=== PATIENT | female | born 1985 | race Caucasian/White ===

== ENCOUNTER 2021-01-02 13:01 | Emergency (ER) | payer OTHER ==
[2021-01-02 13:10] VITALS: BP 118/79; PULSE 92; TEMP 97.9; BMI 28.7
[2021-01-02] MEDS ORDERED: ONDANSETRON 4 MG/2 ML VIAL IVPUSH ONE (13:30)
[2021-01-02] MEDS ORDERED: SODIUM CHLORIDE 1,000 ML IV STA ×2 (13:30→15:38)
[2021-01-02] MEDS ORDERED: MAG HYDROX/AL HYDROX/SIMETH 30 ML UNIT-DOSE CUP PO ONE (13:31)
[2021-01-02] MEDS ORDERED: ONDANSETRON 4 MG/2 ML VIAL ONE (13:37)
[2021-01-02] MEDS ORDERED: MAG HYDROX/AL HYDROX/SIMETH 30 ML UNIT-DOSE CUP ONE (13:37)
[2021-01-02 14:18] LABS: BASO % 0.3 % (0-2.0); EOS % 0.2 % (0-4.5); HEMOGLOBIN 14.5 GM/dL (10.7-15.3); LYMPH % 11.6 % (8-40); MCH 30.1 pg (25.7-33.7); MCHC 34.5 g/dl (32.0-36.0); MEAN CELL VOLUME 87.3 fl (80-96); MEAN PLT VOLUME 9.2 fl (7.5-11.1); MONO % 4.6 % (3.8-10.2); NEUT % 83.3 % (42.8-82.8); PLATELET COUNT 308 10^3/uL (134-434); RBC 4.81 M/mm3 (3.60-5.2); RDW 12.6 % (11.6-15.6); WHITE BLOOD COUNT 10.7 K/mm3 (4.0-10.0)
[2021-01-02 14:25] LABS: INR 1.08 (0.83-1.09); PROTHROMBIN TIME (PATIENT) 13.3 SEC (9.7-13.0)
[2021-01-02 14:44] LABS: BLOOD UREA NITROGEN 15.5 mg/dL (7-18); CALCIUM 8.9 mg/dL (8.5-10.1)
[2021-01-02 14:45] LABS: ALBUMIN 4.3 g/dl (3.4-5.0)
[2021-01-02 14:48] LABS: CREATININE 0.9 mg/dL (0.55-1.3)
[2021-01-02 14:49] LABS: BILIRUBIN,TOTAL 0.5 mg/dL (0.2-1); TOT PROT 8.8 g/dl (6.4-8.2)
[2021-01-02 14:53] LABS: URINE APPEARANCE CLOUDY; URINE BILIRUBIN NEGATIVE (NEGATIVE); URINE COLOR YELLOW; URINE GLUCOSE (UA) NEGATIVE (NEGATIVE); URINE KETONE 2+ (NEGATIVE); URINE LEUK ESTERASE NEGATIVE (NEGATIVE); URINE NITRITE NEGATIVE (NEGATIVE); URINE PROTEIN TRACE (NEGATIVE)
[2021-01-02 14:56] LABS: HCG,QUALITATIVE URINE Negative
[2021-01-02] MEDS ORDERED: FAMOTIDINE 20 MG/50 ML IVPB 20 MG/50 ML MG IVPB ONE ×2 (15:37→15:49)
[2021-01-02] MEDS ORDERED: ACETAMINOPHEN 1000 MG/100 ML VIAL (NON FORMULARY) IVPB ONE (15:37)
[2021-01-02] MEDS ORDERED: ACETAMINOPHEN INJECTION 100 ML IVPB ONE (15:48)
== END 2021-01-02 18:28 | disposition home or self-care (01) ==
LOC: JER 13:01
PROC: 3E033GC Introduction of Other Therapeutic Substance into Peripheral Vein, Percutaneous Approach (ICD-10-PCS; principal; 2021-01-02)
DX: K52.9 Noninfective gastroenteritis and colitis, unspecified (principal)
CPT/HCPCS: 36415; 80053; 81003; 83690; 84703; 85025; 85610; 87086; 99284-25; C9803; J0131; U0003; U0005